=== PATIENT | female | born 1965 | race Caucasian/White ===

== ENCOUNTER → 2016-06-17 | Outpatient (CLI) | payer BC ==
[~2016-06-17] MED LIST: CYCL-259 PO; GABA1CAP4 PO; HYDR-5688 PO; IBUP-103 PO; LACT10CA3 PO
--- NOTE | 2016-06-17 16:38 | DIAGNOSTIC IMAGING REPORT ---
L-SPINE MIN 4 VIEWS ROUTINE CLINICAL HISTORY: Sacral spina bifida without hydrocephalus. COMPARISON: MRI of the lumbar spine February 05,016 and lumbar spine radiograph February 27, 2016. FINDINGS: Incidental note is made of cholecystectomy clips. Alignment of the lumbar spine is anatomic. Vertebral body heights are maintained. There is no fracture or suspicious lesion. A defect within the posterior elements at the L5 level as well as within the sacrum is unchanged since prior exam. The sacroiliac joints are intact. The bony appearance of the lumbar spine and sacrum is unchanged. Mild multilevel degenerative disc disease and facet arthrosis is present. IMPRESSION: 1. No acute lumbar spine fracture or subluxation. 2. Posterior defect within the lumbosacral spine, similar to prior exam, consistent with the history of spina bifida. 3. Mild multilevel degenerative disc disease and facet arthrosis of the lumbar spine. Electronically signed by: Matty Torres M.D. 06/17/2016 4:37 PM Dictated Date/Time: 06/17/2016 4:35 PM
== END | disposition home or self-care (01) ==
LOC: C.RAD1850 16:18
PROVIDERS: ATTEND Family Medicine
DX: Q05.8 Sacral spina bifida without hydrocephalus (principal)

== ENCOUNTER → 2016-06-26 | Outpatient (CLI) | payer BC ==
[~2016-06-26] MED LIST changes: +OPTIRAY 320 IV PRN
--- NOTE | 2016-06-26 09:48 | DIAGNOSTIC IMAGING REPORT ---
CT LUMBAR SPINE COMBO CT DOSE: 1450.17 mGy.cm CLINICAL HISTORY: Lumbar spine pain. Bony mass. History of teratomas. History of sacral spina bifida. TECHNIQUE: Unenhanced images were obtained the lumbar spine. Images were repeated following administration 93 cc of Optiray 320. Sagittal and coronal reformatted imaging was performed. COMPARISON STUDY: Conventional radiographic study dated 06/17/2016, MRI dated 02/03/2012 FINDINGS: L1-2 level: There is no evidence of disc bulge or focal herniation. There is no evidence of spinal or foraminal stenosis. L2-3 level: There is no evidence of disc bulge or focal herniation. There is no evidence of spinal or foraminal stenosis. L3-4 level: There is a minor circumferential disc bulge. There is no evidence of significant spinal foraminal stenosis L4-5 level: There is a minor circumferential disc bulge. There is no evidence of significant spinal or foraminal stenosis L5-S1 level: There is disc bulge and tiny central disc protrusion. There is no foraminal stenosis. There is posterior spinal dysraphism beginning at the L5 level. There is ectasia of the distal thecal sac. No pathologic soft tissue masses are visualized There is a radiopaque marker at the site of palpable abnormality. There are no underlying soft tissue masses. The area of palpable abnormality appears to correspond to the dysraphic posterior elements at the S3 level. Postcontrast images reveal no pathologically enhancing masses. IMPRESSION: 1. 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 Tiny central disc protrusion at the L5-S1 level, similar to the 2011 MRI study 3. No abnormal soft tissue masses. No evidence of pathologic enhancement.. Electronically signed by: Jefferson Wren M.D. 06/26/2016 9:47 AM Dictated Date/Time: 06/26/2016 9:39 AM
== END | disposition home or self-care (01) ==
LOC: C.CTS 09:18
PROVIDERS: ATTEND Family Medicine
DX: M54.5 Low back pain (principal); G95.9 Disease of spinal cord, unspecified

== ENCOUNTER → 2016-07-13 | Outpatient (CLI) | payer BC ==
[~2016-07-13] MED LIST changes: -OPTIRAY 320 IV PRN
[2016-07-13 22:14] LABS: BASO % 0.5 %; BASO ABS # 0.04 K/uL (0-0.2); COMPLETE YES; EOS % 0.9 %; HEMATOCRIT 39.5 % (37-47); IG% 0.1 %; LYMPH % 29.5 %; LYMPH ABS # 2.26 K/uL (1.2-3.4); MEAN CELL VOLUME 88.2 fL (80-100); MEAN CORPUSCULAR HEMOGLOBIN 30.4 pg (25-34); MEAN CORPUSCULAR HGB CONC 34.4 g/dl (32-36); MEAN PLATELET VOLUME 10.3 fL (7.4-10.4); MONO % 7.4 %; NEUT % 61.6 %; PLATELET COUNT 303 K/uL (130-400); RED BLOOD COUNT 4.48 M/uL (4.2-5.4); WHITE BLOOD COUNT 7.67 K/uL (4.8-10.8)
== END | disposition home or self-care (01) ==
LOC: C.LAB 21:56
PROVIDERS: ATTEND Family Medicine
DX: R42 Dizziness and giddiness (principal)

== ENCOUNTER → 2016-10-22 | Day surgery (SDC) | payer BC ==
[2016-10-01 14:30] VITALS: Ht 170.2 cm; Wt 70.0 kg
[~2016-10-22] VITALS: Ht 170.2 cm; Wt 70.0 kg
== END | disposition home or self-care (01) ==
LOC: C.PAT 10:52 → EDSTATUS 15:30
PROVIDERS: ATTEND Physical Medicine & Rehabilitation
DX: M46.1 Sacroiliitis, not elsewhere classified (principal)

== ENCOUNTER → 2017-05-17 | Outpatient (CLI) | payer OTHER ==
--- NOTE | 2017-05-17 16:16 | DIAGNOSTIC IMAGING REPORT ---
CHEST 2 VIEWS ROUTINE HISTORY: ASTHMA COMPARISON: Chest 05/20/2015. FINDINGS: The lungs are clear. Cardiac silhouette is normal in size. No pleural effusions. No pneumothorax. IMPRESSION: No acute process. Electronically signed by: Abiel Denson M.D. 05/17/2017 4:15 PM Dictated Date/Time: 05/17/2017 4:15 PM
== END | disposition home or self-care (01) ==
LOC: C.RAD1850 15:56
PROVIDERS: ATTEND Family Medicine
DX: J45.909 Unspecified asthma, uncomplicated (principal)

== ENCOUNTER 2017-08-29 22:03 | Emergency (ER) | payer OTHER ==
[~2017-08-29] VITALS: Ht 170.2 cm; Wt 71.3 kg
[~2017-08-29 22:03] MED LIST changes: +GABA-1219 PO; -GABA1CAP4 PO
[2017-08-29 22:06] VITALS: BP 115/84; PULSE 79; TEMP 36.6; Ht 170.2 cm; Wt 71.3 kg
[2017-08-29 22:09] VITALS: O2SAT 96
--- NOTE | 2017-08-29 22:47 | EMERGENCY ROOM VISIT NOTE ---
ED Visit Note First contact with patient: 22:11 CHIEF COMPLAINT: Right forearm burn HISTORY OF PRESENT ILLNESS: This 52-year-old female patient presents to the emergency department after they sustained a burn injury to the right forearm. This occurred at approximately 9 PM this evening while heating up past assess. The patient states the sauce spilled onto her right arm, causing the osorio. She immediately ran the arm under cold water for approximately 5 minutes. When she pulled it out, the whole forearm was erythematous. She then applied aloe, and states the pain has improved, however then it developed smaller bumps. She called the nurse line and was told to come to the emergency department for evaluation. The patient complains of swelling and pain over the anterior forearm rated as 6/10. Pain is worse with movement and pressure. Sensation is still present. There is no blistering. No other injury sustained. Tetanus shot is up to date. The patient did take 800 mg ibuprofen prior to arrival REVIEW OF SYSTEMS: A 6 system review of systems was completed with positives and pertinent negatives listed in the HPI. ALLERGIES: Latex MEDICATIONS: Gabapentin, Culturelle PMH: Currarino syndrome, Spina Bifida, neurogenic bladder SOCIAL HISTORY: The patient lives locally with family. She denies drug, alcohol, tobacco use per PHYSICAL EXAM: Vital Signs reviewed, see Nurse's notes, vital signs stable. GENERAL: This is a 52-year-old white female, awake, alert, well appearing, no acute distress HEENT: Normocephalic, atraumatic. No carbonaceous sputum or singed nasal hair. Oropharynx without edema or erythema. MUSCULOSKELETAL: No gross deformity. SKIN: There is a small partial thickness burn to the right forearm and is to % BSA. The burn is not circumferential. No signs of infection or foreign body. There is no skin sloughing. NEURO: No sensory or motor deficits noted over all dermatomes and myotomes tested. EMERGENCY DEPARTMENT COURSE AND DECISION MAKING: I examined the patient. The patient presented with an isolated thermal burn as above. No signs of airway involvement or smoke inhalation. There is no critical body part involvement or burn severity to warrant burn center referral. I did recommend bandaging the wound with bacitracin ointment and clean bandage. I discussed the importance of keeping the wounds clean. I advised the patient that I would be preparing her discharge instructions and we would bandaged the wound. The patient did leave the emergency department prior to receiving written discharge instructions. Verbal discharge instructions provided to the patient at bedside. I attest that I have personally reviewed the patient's current medication list. Patient was found to have normal blood pressure on screening and does not require follow-up. Differential diagnosis includes burn, cellulitis, abscess, necrotizing fasciitis , burn, dermatitis, erythema multiforme, bite, osteomyelitis, [place] Syndrome, gangrene, malignancy, and others DIAGNOSIS: Thermal burn of the right forearm The chart was completed utilizing [employer] voice recognition software. Grammatical errors, random word insertions, pronoun errors, and incomplete sentences are an occasional consequence of this system due to software limitations, ambient noise, and hardware issues. Any formal questions or concerns about the content, text, or information contained within the body of this dictation should be directly addressed to the provider for clarification. Problem List Medical Problems: (1) Neurogenic bladder Status: Chronic (2) Spina bifida Status: Chronic (3) spinal surgeries Status: Resolved (4) teratomas Status: Chronic Current/Historical Medications Scheduled Cyclobenzaprine Hcl (Flexeril), 10 MG PO HS Gabapentin (Gabapentin), 300 MG PO TID Ibuprofen Tab (Advil), 600 MG PO Q6H Lactobacillus-Inulin (Culturelle), 1 CAPSULE PO QAM Scheduled PRN Hydrocodone/Acetaminophen 5MG/325MG ([place] 5MG/325MG), 1-2 TABLETS PO Q6H PRN for Pain Allergies Coded Allergies: Latex1 -Allergic Contact Dermititis (Verified Allergy, Unknown, RASH, 08/29) HX OF SPINA BIFIDA NO KNOWN DRUG ALLERGIES (Verified Allergy, Unknown, ., 10/01/16) Vital Signs Date Time Temp Pulse Resp B/P (MAP) Pulse Ox O2 Delivery O2 Flow Rate FiO2 08/29/17 22:09 96 Room Air 08/29/17 22:06 36.6 79 20 115/84 96 Room Air Departure Information Impression Primary Impression: Thermal burn Dispostion Home / Self-Care Condition GOOD Referrals Destiny Fonseca M.D. (PCP) Patient Instructions ED Burn Thermal D 04 20 Dressing, My [facility] Additional Instructions You have been treated in the Emergency Department today for a burn on your right forearm. Use bacitracin ointment on the wound. This is an antibiotic ointment that will help to prevent the development of an infection at the site of your burn. After you have cleaned the burn site with soap and water and dried the area thoroughly , you should apply a layer of the ointment to the site of the burn with clean gauze or a clean tongue depressor. You should apply a dressing over the site of the burn to keep it clean from contamination. Look for signs of infection of the wound including: increased pain, swelling, foul discharge, streaking, or increased temperature. If any of these are noticed you should return to the Emergency Department for further assessment and treatment. For pain control, you can use the following [id number] medicines (if >12 yo): Ibuprofen(Motrin, Advil) may be used for fever or pain. Use 600mg every six hours as needed. Take with food. Avoid using more than 2400mg in a 24 hour period. Do not use 2400mg per day for more than three consecutive days without physician direction. Prolonged inappropriate use can lead to stomach upset or ulcers. (AND/OR) Acetaminophen(Tylenol) may be used for fever or pain. Use 1000mg every six hours as needed. Avoid using more than 3000mg in a 24 hour period. You should return to the Emergency Department or follow-up with your PCP in 2-3 days for a recheck of your burn. This is essential to ensure proper wound healing. Return to the emergency department if your symptoms worsen despite treatment course outlined above.
== END 2017-08-29 22:56 | disposition home or self-care (01) ==
LOC: C.EDB 22:03 → C.EDC 22:56
DX: T22.011A Burn of unspecified degree of right forearm, initial encounter (principal); T31.0 Burns involving less than 10% of body surface; X10.1XXA Contact with hot food, initial encounter; Y93.G1 Activity, food preparation and clean up; Z91.040 Latex allergy status

== ENCOUNTER → 2017-12-06 | Outpatient (CLI) | payer OTHER ==
--- NOTE | 2017-12-06 11:57 | DIAGNOSTIC IMAGING REPORT ---
PELVIC COMPLETE NON OB HISTORY: 52 years-old Female ABD PAIN, LLQ acute left lower quadrant pelvic pain COMPARISON: Pelvic ultrasound 03/03/2016 TECHNIQUE: Multiple real-time sonogram images of the deep pelvic structures were obtained transabdominally and transvaginally assessing grayscale appearance, color and spectral flow FINDINGS: TRANSABDOMINAL: Anteflexed uterus. The left ovary measures 2.8 x 1.1 x 2.3 cm and is unremarkable with arterial inflow documented. Right ovary measures 1.0 x 2.5 x 1.4 cm and is also within normal limits with arterial inflow documented. No adnexal mass lesions or significant free pelvic fluid. TRANSVAGINAL: Anteflexed uterus measures 5.7 x 2.9 x 4.5 cm. Endometrium measures 3 mm. No myometrial mass lesions are identified. Ovaries are not well seen transvaginally. IMPRESSION: Unremarkable sonographic appearance of the uterus, endometrium and ovaries. The above report was generated using voice recognition software. It may contain grammatical, syntax or spelling errors. Electronically signed by: Carlito Khan M.D. 12/06/2017 11:55 AM Dictated Date/Time: 12/06/2017 11:53 AM
== END | disposition home or self-care (01) ==
LOC: C.ULTRBC 10:49
PROVIDERS: ATTEND Family Medicine
DX: R10.32 Left lower quadrant pain (principal)

== ENCOUNTER → 2017-12-09 | Outpatient (CLI) | payer OTHER | END | disposition home or self-care (01) | LOC: C.LABSPEC 17:26 | PROVIDERS: ATTEND Urology | DX: N39.0 Urinary tract infection, site not specified (principal) ==